=== PATIENT | female | born 1965 | race Caucasian/White ===

== ENCOUNTER 2018-07-27 06:34 | Observation (INO) | payer BC ==
--- NOTE | 2018-07-14 13:14 | HP ---
HISTORY AND PHYSICAL: DATE OF ADMISSION/SURGERY: 07/27/18 DATE OF OFFICE VISIT: 07/14/18 SURGEON: Kellie Rodas MD* (dictated by TASHIA Cisneros). PROCEDURE: Left total knee arthroplasty. CHIEF COMPLAINT: Left knee pain. HISTORY OF PRESENT ILLNESS: Ms. Perez is a 53-year-old female with continued complaints of left knee pain. She has failed conservative treatment and elected to proceed with a left total knee arthroplasty. PAST MEDICAL HISTORY: Anxiety, depression, and history of alcohol abuse. PAST SURGICAL HISTORY: Tonsillectomy. CURRENT MEDICATIONS: 1. Multivitamin. 2. Faby. 3. Melatonin. 4. Benadryl as needed. 5. Gabapentin 100 mg daily. ALLERGIES: No known drug allergies. FAMILY HISTORY: Cancer, coronary artery disease, and diabetes. SOCIAL HISTORY: She is a 53-year-old female. She lives with her children. She does not smoke, use drugs or alcohol. REVIEW OF SYSTEMS: A complete 14-point review of systems was reviewed with the patient. It was all negative or noncontributory. She denies history of DVT, PE , hepatitis, HIV, or anesthesia problems. PHYSICAL EXAMINATION GENERAL: She is well developed, well nourished, in no acute distress. VITAL SIGNS: She stands 70 inches tall, weighs 170 pounds. Her blood pressure is 122/86, her heart rate is 68. HEENT: Normocephalic, atraumatic. NECK: Supple. No palpable lymph nodes. PULMONARY: The lungs are clear to auscultation bilaterally. CARDIO: Regular rate and rhythm. Strong S1, S2. ABDOMEN: Soft, nontender, nondistended. NEUROLOGICAL: She is alert and oriented x3. MUSCULOSKELETAL: Left lower extremity: The skin is intact. There are no open wounds or abrasions. There is moderate effusion of the left knee joint. Range of motion is 10 to 120 degrees of flexion with patellofemoral crepitus. Tenderness along the medial and lateral joint line. Positive Apley's and Neeta's. She has a 2+ dorsalis pedis pulse. She is able to dorsiflex and plantarflex and has intact sensation. ASSESSMENT AND PLAN: Ms. Perez is a 53-year-old female with end-stage osteoarthritis of the left knee. She has failed conservative treatment and elected to proceed with a left total knee arthroplasty. Surgery is scheduled for 07/27/[address] Rodas discussed the risks and benefits of the surgery at today's visit and all of her questions were answered. She will follow up with Dr. Rodas 2 weeks after the surgery. TASHIA CISNEROS [id number]/[facility] #: [id number] ASHWIN
[~2018-07-27 06:34] MED LIST: Buffered Lidocaine 1% SYRIN* 1 ML/SYRINGE INTRADERM ONE; Lactated Ringers 1000 ML Bag* 1,000 ML IV SCH
[2018-07-27] MEDS ORDERED: Tranexamic Acid 1,000 MG in NS 0.9% 50 ML IV ONE (07:00)
[2018-07-27] MEDS ORDERED: Buffered Lidocaine 1% SYRIN* 1 ML/SYRINGE INTRADERM ONE (07:15)
[2018-07-27] MEDS ORDERED: ceFAZolin 2 GM PREMIX in ORs 2 GM/50 ML BAG ONE (07:17)
[2018-07-27] MEDS ORDERED: ROPIVACAINE 5 MG/ML 30 ML BTL (0.5%) ONE (07:36)
[2018-07-27] MEDS ORDERED: Midazolam* 1 MG/ML 5 ML VIAL (5 MG) ONE ×2 (08:26→09:10)
[2018-07-27] MEDS ORDERED: fentaNYL* 50 MCG/ML 2 ML VIAL (100 MCG VIAL) ONE (08:50)
[2018-07-27] MEDS ORDERED: Dexamethasone IV* 4 MG/ML 1 ML (4 MG) ONE (08:54)
[2018-07-27] MEDS ORDERED: KETAMINE HCL* 50 MG/ML 10 ML VIAL ONE (09:21)
[2018-07-27] MEDS ORDERED: PROCHLORPERAZINE INJ 5 MG/ML 2 ML VIAL IV PRN (10:25)
[2018-07-27] MEDS ORDERED: Ondansetron INJ* 2 MG/ML VIAL IV PRN ×2 (10:25→11:08)
[2018-07-27] MEDS ORDERED: Naloxone* 0.4 MG/ML 1 ML VIAL IV PRN (10:25)
[2018-07-27] MEDS ORDERED: oxyCODONE TAB* 5 MG TAB PO PRN (10:25)
[2018-07-27] MEDS ORDERED: DiMENhydriNATE IV* 50 MG/ML VIAL IV PUSH PRN (10:25)
[2018-07-27] MEDS ORDERED: fentaNYL* 50 MCG/ML 2 ML VIAL (100 MCG VIAL) IV PRN (10:25)
[2018-07-27] MEDS ORDERED: HYDROmorphone INJ1* 1 MG/ML SYRINGE IV PRN (10:25)
[2018-07-27] MEDS ORDERED: Ketorolac INJ* 30 MG/ML 1 ML VIAL ONE (10:26)
[2018-07-27] MEDS ORDERED: Ondansetron INJ* 2 MG/ML VIAL ONE (10:26)
[2018-07-27] MEDS ORDERED: oxyCODONE/Acetamin 5/325 MG* TAB PO PRN ×2 (11:08)
[2018-07-27] MEDS ORDERED: diPHENhydraMINE IV* 50 MG/ML 1 ml VIAL (BENADRYL) IV PRN (11:08)
[2018-07-27] MEDS ORDERED: traMADol TAB* 50 MG PO PRN (11:08)
[2018-07-27] MEDS ORDERED: Ondansetron TAB* 4 MG PO PRN (11:08)
[2018-07-27] MEDS ORDERED: Cyclobenzaprine TAB* 10 MG PO PRN (11:08)
[2018-07-27] MEDS ORDERED: Morphine 4 MG/ML VIAL (1 ml) 4 MG/ML VIAL IV PRN (11:08)
[2018-07-27] MEDS ORDERED: Bisacodyl SUPP* 10 MG SUPP PR PRN (11:08)
[2018-07-27] MEDS ORDERED: Magnesium Hydroxide LIQ* 30 ML UDC PO PRN (11:08)
[2018-07-27] MEDS ORDERED: Polyethylene Glycol 3350* 17 GM PACKET PO PRN (11:08)
[2018-07-27] MEDS ORDERED: Bupivacaine 0.25% SDV PF* 10 ML VIAL INJ ONE (12:16)
[2018-07-27] MEDS: Lactated Ringers 1000 ML Bag* 1,000 ML IV SCH ×2 (12:55→23:08)
[2018-07-27] MEDS: Acetaminophen TAB* 325 MG PO SCH ×2 (12:57→20:09)
[2018-07-27] MEDS: oxyCODONE TAB* 5 MG TAB PO PRN ×2 (14:20→20:18)
--- NOTE | 2018-07-27 14:26 | PN ---
Progress Note - Progress Note Date of Service: 07/27/18 Note: Patient seen at bedside. Her pain is well controlled. Denies CP, SOB, dizziness or nausea. BL LE with sensation intact to light touch, DP2+, DF/PF intact.
--- NOTE | 2018-07-27 15:22 | OP ---
Operative Report - Blank - Operative Report Date of Operation: 07/27/18 Note: JOHN PEREZ 1965 Date of Surgery: 07/27/18 Kellie Rodas MD Manager Fiber: Merly LAO did help throughout the procedure with preparation of the knee, wound retraction, manipulation of the knee, and wound closure. Anesthesiologist: Hao Gaviria MD Anesthesia Type: Spinal Preoperative Diagnosis: Left severe degenerative osteoarthritis of the knee Postoperative Diagnosis: As above Procedure Performed: Left Total Knee Arthroplasty Tourniquet time: 48 minutes Complications: None Specimen: Bone and cartilage from the left knee joint sent to pathology. Hardware Used: Cemented [employer]ino [employer] Nephew total knee hardware was used - For the femur a size 5 narrow left legion posterior stabilized femoral component, for the tibia a size 4 left jose II tibial baseplate, for the insert a size 9mm 3 -4 posterior stabilized articular polyethylene insert, and for the patella a size 35 3-peg all poly patella. Brief History/Indication: JOHN PEREZ was known in clinic and had a history of severe left knee pain and swelling. She failed conservative treatment with anti-inflammatories, pain pills, intra-articular injections and physical therapy. She elected to undergo left total knee arthroplasty due to continued pain and decreased quality of life. Radiographs showed severe end stage osteoarthritis of the knee with bone on bone contact. Informed consent was obtained from the patient. She understood the risks of surgery included but were not limited to: bleeding, infection, damage to nearby structures, intraoperative fracture, nerve palsy, failure of the hardware, early loosening, knee stiffness or loss of motion, anesthesia complications, stroke, heart attack , blood clot and . She wished to proceed. Intra-Operative Findings: Intraoperatively the patient was noted to have severe loss of cartilage in all 3 compartments of the knee. Description of the Procedure: JOHN PEREZ was identified in the preanesthesia unit. Her left knee was marked as the correct operative side. Informed consent was signed and placed in the chart. The patient was taken to the operating room and placed under anesthesia without complication. A tello catheter was placed. A tourniquet was placed on the left thigh. The left lower extremity was prepped and draped in the usual sterile fashion. Preoperative time-out was made to correctly identify the patient, side and site. Appropriate intraoperative antibiotics were given within one hour of incision. Tourniquet was inflated. A midline incision was made and carried sharply down to the extensor mechanism. A new 10 blade was used to make a standard medial parapatellar arthrotomy. The patella was subluxed laterally. Electrocautery was used to dissect soft tissue off the superomedial tibia to the midsagittal plane. The knee was flexed up. The anterior horn of the lateral meniscus and the ACL were sharply incised. A drill was used to enter the distal femur. The intramedullary distal femoral cutting guide was pinned on the distal femur. The oscillating saw was used to make the distal femoral cut. The external rotation guide was pinned on the distal femur and the distal femur was sized to a size 5. The size 5 multi-cutting jig was pinned on the distal femur. The oscillating saw was used to make the appropriate 4 chamfer cuts. Next the PCL was completely released. The extramedullary tibial cutting guide was pinned on the proximal tibia and the oscillating saw was used to make the proximal tibial cut perpendicular to the mechanical axis of the tibia. The bone was carefully removed. The knee was brought out into full extension. The spacer block was placed and had excellent fit with the knee in full extension. The medial and lateral ligaments were well balanced. The flexion and extension gaps were well balanced. The knee was flexed up. [place] police inspector was placed both medially and laterally. Any remaining meniscus was removed with electrocautery. Curved osteotome was used to remove any posterior osteophytes. The tibial tray and drop delma were placed and confirmed a satisfactory tibial cut. The size 5 left narrow femoral trial was impacted onto the distal femur. This trial had excellent fit and stability. The box for the posterior stabilized implant was prepared using a box cut osteotome and a reamer. Next a tibial tray trial and 9 mm insert trial was placed. The knee was taken through a range of motion and had full extension to 130 degrees of flexion. Patellofemoral tracking was satisfactory. The patella was inverted and sized to a size 35. Three peg holes were drilled through the size 35 drill guide. The trial patella was placed and the knee was taken through a range of motion. There was satisfactory patellofemoral tracking. All trials were removed. The tibia was subluxed anteriorly and sized to a size 4. The proximal tibial was prepared with a size 4 keel punch. All bony cut surfaces were irrigated with sterile saline and dried. Final implants were cemented into place starting with the tibia, followed by the femur, and last the patella. A 9 mm insert trial was placed and the knee was brought into full extension. Tourniquet was turned down and the knee was copiously irrigated with sterile saline. Electrocautery was used to obtain meticulous hemostasis. Once the cement had fully cured, the insert trial was removed. Any excess cement was removed from around the hardware and capsule. Final insert chosen was a 9 mm posterior stabilized Jose II articular insert size 3-4. Stability of the insert was checked and noted to be stable. The extensor mechanism was closed using number 1 vicryls. The rest of the incision was closed in a layered fashion using 0 and 2-0 vicryls. The skin was closed using 3-0 nylon suture. Sterile xeroform, 4x4s and webril were used to cover the incision. Abdon wrap and cold pack were used to cover the dressings. The patients anesthesia was reversed without difficulty. She was taken to the PACU in stable condition. Intended weight-bearing will be as tolerated.
[2018-07-27] MEDS: ceFAZolin 1 GM ADVAN(*) 1 GM in NS 0.9% 50 ML* 50 ML IVPB SCH ×2 (16:03→23:09)
[2018-07-27] MEDS ORDERED: Cetirizine* 10 MG TAB PO SCH (18:00)
[2018-07-27] MEDS ORDERED: Gabapentin CAP(*) 100 MG PO SCH (18:00)
[2018-07-27] MEDS: Magnesium Hydroxide LIQ* 30 ML UDC PO SCH (20:09)
[2018-07-27] MEDS: Docusate CAP* 100 MG PO SCH (20:18)
[2018-07-28] MEDS: oxyCODONE TAB* 5 MG TAB PO PRN ×3 (02:26→13:54)
[2018-07-28] MEDS: Acetaminophen TAB* 325 MG PO SCH ×2 (06:09→13:09)
[2018-07-28] MEDS: ceFAZolin 1 GM ADVAN(*) 1 GM in NS 0.9% 50 ML* 50 ML IVPB SCH (08:02)
[2018-07-28] MEDS: Docusate CAP* 100 MG PO SCH (08:03)
[2018-07-28] MEDS: Magnesium Hydroxide LIQ* 30 ML UDC PO SCH (08:06)
[2018-07-28 08:18] LABS: Hematocrit 36 % (35-47); Hemoglobin 12.2 g/dL (12.0-16.0); Mean Platelet Volume 7.5 fL (7.4-10.4); Platelet Count 293 10^3/uL (150-450)
[2018-07-28 08:37] LABS: BUN/Creatinine Ratio 12.1 (8-20); Calcium 8.9 mg/dL (8.6-10.3); EGFR African American 113.4 (>60); EGFR Non-African American 93.7 (>60); Potassium 3.7 mmol/L (3.5-5.0)
[2018-07-28] MEDS ORDERED: Apixaban* 2.5 MG TAB PO SCH (09:00)
--- NOTE | 2018-07-28 10:08 | PN ---
Progress Note - Progress Note Date of Service: 07/28/18 SOAP: Subjective: []Pt seen at bedside. She feels well and desires DC home today. Denies CP, SOB, dizziness, nausea. Objective: []General: Appears well, NAD LLE: left knee dressing changed, incision is clean, dry and intact without erythema or discharge. Thigh is soft, DF/PF intact, DP2+, sensation intact to light touch distally. Calves supple and nontender without erythema, edema or palpable cords Assessment: [] POD 1 sp Left total knee arthroplasty Plan: []WBAT PT/OT eliquis 2.5 mg po BID x 30 days post op DC home today Vital Signs Temp 98.6 F 07/28/18 07:27 Pulse 58 07/28/18 07:27 Resp 20 07/28/18 09:48 BP 104/71 07/28/18 07:27 Pulse Ox 100 07/28/18 08:00 Intake & Output 07/27/18 07/28/18 07/28/18 18:59 06:59 18:59 Intake Total 3410 2420 370 Output Total 1750 3100 Balance 1660 -680 370 Weight 169 lb Intake: IV Fluids 2450 1100 50 ABX - CEFAZOLIN 110 LR 990 Lactated Ringer's 2400 NS 50ML, Cefazolin 2G 50 Oral 960 1320 320 Output: [place] 1550 3100 Estimated Blood Loss 200 Other: # Bowel Movements 0 Laboratory Last Values Hgb 12.2 g/dL (12.0-16.0) 07/28/18 05:46 Hct 36 % (35-47) 07/28/18 05:46 Plt Count 293 10^3/uL (150-450) 07/28/18 05:46 MPV 7.5 fL (7.4-10.4) 07/28/18 05:46 Sodium 140 mmol/L (135-145) 07/28/18 05:46 Potassium 3.7 mmol/L (3.5-5.0) 07/28/18 05:46 Chloride 107 mmol/L (101-111) 07/28/18 05:46 Carbon Dioxide 27 mmol/L (22-32) 07/28/18 05:46 Anion Gap 6 mmol/L (2-11) 07/28/18 05:46 BUN 8 mg/dL (6-24) 07/28/18 05:46 Creatinine 0.66 mg/dL (0.51-0.95) 07/28/18 05:46 Est GFR ( Amer) 113.4 (>60) 07/28/18 05:46 Est GFR (Non-Af Amer) 93.7 (>60) 07/28/18 05:46 BUN/Creatinine Ratio 12.1 (8-20) 07/28/18 05:46 Glucose 112 mg/dL (70-100) H 07/28/18 05:46 Calcium 8.9 mg/dL (8.6-10.3) 07/28/18 05:46
[2018-07-28 11:16] VITALS: BP 110/72
--- NOTE | 2018-07-28 11:50 | DS ---
Orthopedic Discharge Summary - Discharge Summary Date of Admission:07/27/18 Date of Discharge: 07/28/18 Date of Surgery: 07/27/18 Attending Orthopedic Provider: Dr Rodas Pre-operative Diagnosis: left knee osteoarthritis Operative Procedure: left total knee replacement Disposition of Patient: home Condition of Patient: stable History: JOHN PEREZ is a 53 year old F with years of increasingly severe left knee pain. Patient has failed conservative management and has elected to undergo a left total knee replacement Hospital Course: JOHN was admitted to [facility] on 07/27/18. Patient underwent a left total knee replacement without complication followed by a brief recovery in PACU and transfer to the Short Stay Surgical Unit in stable condition. Our physical therapy service also participated in this patients care. Post-op day 1: patient was alert and in no acute distress. Dressing was changed, incision was clean, dry and intact. Operative extremity dorsiflexion and plantarflexion intact, sensation intact to light touch distally , DP2+. Patient was deemed to be stable for discharge. Physical therapy goals were met. Home Medications Medication Instructions Recorded Confirmed Type Animal Pack 1 tab PO QAM 07/14/18 07/27/18 History Ascorbic Acid [Vitamin C] 100 mg PO QAM 07/14/18 07/27/18 History Cholecalciferol (Vitamin D3) 5,000 unit PO QAM 07/14/18 07/27/18 History [Vitamin D3] Fexofenadine HCl 180 mg PO QPM 07/14/18 07/27/18 History Gabapentin [Neurontin] 100 mg PO QPM 07/14/18 07/27/18 History Glucosam/Chondr/Collagn/Hyalur 1 tab PO QAM 07/14/18 07/27/18 History [Glucosamine & Chondroitin Cap] Krill Oil 500 mg PO QAM 07/14/18 07/14/18 History Melatonin 10 mg PO BEDTIME 07/14/18 07/27/18 History diPHENhydraMINE PO* [Benadryl PO 25 mg PO BEDTIME PRN 07/14/18 07/27/18 History 25 MG TAB*] Acetaminophen TAB* [Tylenol TAB*] 975 mg PO Q8H tab MDD 4000 mg 07/28/18 Rx Apixaban* [Eliquis*] 2.5 mg PO BID #60 tab 06/05/19 Rx Docusate CAP* [Colace Cap*] 100 mg PO BID #60 cap 07/28/18 Rx oxyCODONE/Acetamin 5/325 MG* 2 tab PO Q4H PRN #70 tab MDD 10 07/28/18 Rx [Percocet 5/325 TAB*] Discharge Instructions following Orthopedic Surgery: Activity: * Weight Bearing as tolerated * Continue physical therapy and occupational therapy exercises as shown * Home physical therapy Wound care: * OK to shower on post-op day 3, no bathing, swimming, or submerging wound. * Use gentle soap, pat dry. Cover with gauze, LUCIA wrap or tape. * Visiting home nurse to do wound checks. Call Orthopedic office for: * Increased drainage * Redness * Increased pain * Fever Go to ER with shortness of breath or chest pain. Diet: * Regular diet * Increase fluids and fiber to prevent constipation. * Continue to use stool softeners, call office if no bowel motion within 48 hours. Medications See Home Medication List in your packet for medications that you should take after discharge. DVT Prophylaxis: Eliquis Dosin.5 mg, 1 tab every 12 hours x 30 days. medication increases bleeding tendency Pain Control: Percocet Dosin/325 mg 1-2 tabs by mouth every 4-6 hours as needed for pain. Maximum of 10 tabs per day. Hold for sedation Please note that Percocet contains Tylenol (acetaminophen). Maximum daily dose of Tylenol is 4000 mg from all sources. Antibiotics are required prior to any dental work. FOLLOW UP: Follow up with [[facility]ark] Within 10-14 days, call for appointment Please call our office with any questions or concerns ([phone])
== END 2018-07-28 14:15 | disposition home or self-care (01) ==
LOC: OR 06:34 → SSU 11:09 → INTOOBSV 11:09
PROVIDERS: ADMIT Orthopaedic Surgery Adult Reconstructive Orthopaedic Surgery; ATTEND Orthopaedic Surgery Adult Reconstructive Orthopaedic Surgery
DX: M25.562 Pain in left knee (principal); M17.12 Unilateral primary osteoarthritis, left knee
CPT/HCPCS: 36415; 80048; 81025; 85014; 85018; 85049; 96365; 96366; A9270-GY; G0378; J0690; J1100; J1885; J2250; J2405; J2795; J3010; J3490